=== PATIENT | female | born 1940 | race Caucasian/White ===

== ENCOUNTER → 2016-04-07 | Outpatient (CLI) | payer MEDICARE ==
[2016-04-07 09:05] LABS: BASOPHILS % (AUTO) 1 % (0-2); EOSINOPHILS # (AUTO) 0.2 10^3uL; EOSINOPHILS % (AUTO) 3 % (0-4); LYMPHOCYTES # (AUTO) 2.1 X10^3; MEAN CORPUSCULAR HEMOGLOBIN 29.5 PG (26.0-34.0); MEAN CORPUSCULAR HGB CONC 33.8 g/dL (31.0-37.0); MEAN CORPUSCULAR VOLUME 88 FL (80-100); MEAN PLATELET VOLUME 9.1 FL (6.0-9.5); MONOCYTES # (AUTO) 0.4 X10^3; MONOCYTES % (AUTO) 6 % (3-11); NEUTROPHILS # (AUTO) 4.2 X10^3; NEUTROPHILS % (AUTO) 60 % (51-67); PLATELET COUNT 371 10^3uL (150-450); WHITE BLOOD COUNT 6.91 10^3uL (4.0-11.0)
[2016-04-07 09:14] LABS: ALBUMIN 4.2 g/dL (3.4-5.0); ANION GAP 13.9 MEQ/L (3-15); CALCULATED IONIZED CALCIUM 4.2 mg/dL (3.8-4.6); TOTAL PROTEIN 7.6 g/dL (6.4-8.5)
== END ==
LOC: LAB 08:49
PROVIDERS: ATTEND Internal Medicine
DX: E78.5 Hyperlipidemia, unspecified (principal); M81.6 Localized osteoporosis [Lequesne]
CPT/HCPCS: 36415; 80053; 80061; 84443; 85025

== ENCOUNTER → 2016-08-09 | Outpatient (CLI) | payer MEDICARE ==
--- NOTE | 2016-08-11 14:53 | Diagnostic Imaging Report ---
EXAMINATION: DIGITAL MAMMO RT DIAG W/CAD. COMPARISON: Right breast diagnostic mammogram of 02/13/2016 and screening mammogram from 02/10/2016. INDICATION: Further evaluation of microcalcifications. TECHNIQUE: Digital diagnostic mammography of the right breast was performed with a computer-aided detection (CAD) system. Spot magnification and lateral views were obtained. FINDINGS: The group of microcalcifications in the right upper-outer quadrant has a stable configuration and number. Again, these likely represent a group of developing vascular calcifications with an adjacent benign oil cyst which is calcified. No new microcalcifications, suspicious mass, or architectural distortion in the right breast. IMPRESSION: Stable microcalcifications in the right upper outer quadrant are most likely due to developing vascular calcifications. Recommend the patient return in 6 months for bilateral screening mammography. This should be treated as a diagnostic mammogram as magnification views of these calcifications are suggested in 6 months. ACR BI-RADS Category 3: Probably benign findings. Result letter will be mailed to the patient. Note: At least 10% of breast cancer is not imaged by mammography. Dictated by: Dictated on workstation # [id number]
== END ==
LOC: RAD 09:54
PROVIDERS: ATTEND Internal Medicine
DX: R92.0 Mammographic microcalcification found on diagnostic imaging of breast (principal)